=== PATIENT | male | born 1980 | race African-American/Black ===

== ENCOUNTER → 2019-03-13 | Outpatient (CLI) | payer OTHER | END | disposition home or self-care (01) | LOC: RAH 09:27 → EEVIPCON 09:27 | PROVIDERS: ATTEND Internal Medicine | DX: M25.561 Pain in right knee (principal) | CPT/HCPCS: 73562 ==

== ENCOUNTER 2019-06-16 07:43 | Day surgery (SDC) | payer OTHER ==
[~2019-06-16] VITALS: Ht 177.8 cm; Wt 62.1 kg
[2019-06-16] VITALS (19 sets, daily range): BP systolic 115–157; BP diastolic 63–98
[2019-06-16 08:36] LABS: BASOPHILS % (AUTO) 0.8 % (0.0-5.0); EOSINOPHILS % (AUTO) 2.8 % (0.0-8.0); HEMATOCRIT 35.6 % (42-54); MEAN CORPUSCULAR HEMOGLOBIN 29.8 pg (27.0-33.0); MEAN CORPUSCULAR HGB CONC 32.9 g/dL (32.0-36.0); MEAN CORPUSCULAR VOLUME 90.8 fL (79-99); MONOCYTES % (AUTO) 10.6 % (3.0-13.0); NEUTROPHILS % (AUTO) 37.8 % (40.0-77.0); PLATELET COUNT (AUTO) 180 K/uL (130-400); RED BLOOD CELL COUNT(AUTO) 3.92 MIL/uL (4.50-6.20); WHITE BLOOD COUNT (AUTO) 2.5 K/uL (4.8-10.8)
[2019-06-16 08:47] LABS: CREATININE 1.7 mg/dL (0.5-1.5); POTASSIUM 4.1 mmol/L (3.5-5.1)
[2019-06-16 10:03] LABS: BASOPHILS % (MANUAL) 5 % (0-2); EOSINOPHILS % (MANUAL) 4 % (1-6); LYMPHOCYTES % (MANUAL) 45 % (22-44); MAN.DIFF COMMENT-IMPRESSION MANUAL DIFFERENTIAL; MONOCYTES % (MANUAL) 10 % (2-9); PLATELET MORPHOLOGY COMMENT ADEQUATE; REACTIVE LYMPHOCYTES 3 % (0-0); SEGMENTED NEUTROPHILS % 33 % (40-70)
[2019-06-16] MEDS ORDERED: LACTATED RINGERS 1000ML 1,000 ML IV ONE (10:03)
[2019-06-16] MEDS: CEFAZOLIN SODIUM 1 GM VIAL ONE ×2 (10:15→13:30)
[2019-06-16] MEDS ORDERED: FOLI20CA PO (10:49)
[2019-06-16] MEDS ORDERED: TRAM50TA4 PO (10:49)
[2019-06-16] MEDS ORDERED: OMEP20CA12 PO (10:49)
[2019-06-16] MEDS ORDERED: GUAI100S13 PO (10:49)
[2019-06-16] MEDS ORDERED: RITO100T4 PO (10:49)
[2019-06-16] MEDS ORDERED: DOLU50TA PO (10:49)
[2019-06-16] MEDS ORDERED: DOCU100T PO (10:49)
[2019-06-16] MEDS ORDERED: EMTR1TAB12 PO (10:49)
[2019-06-16] MEDS ORDERED: ESCI10TA54 PO (10:49)
[2019-06-16] MEDS ORDERED: MULT1TAB70 PO (10:49)
[2019-06-16] MEDS ORDERED: DARU800T PO (10:49)
[2019-06-16] MEDS ORDERED: LIDOCAINE PF 2% 5ML ABBOJECT ONE (12:41)
[2019-06-16] MEDS ORDERED: ONDANSETRON HCL 4 MG/2 ML VIAL ONE (12:41)
[2019-06-16] MEDS ORDERED: PROPOFOL 10 MG/ML 20ML VIAL IV ONE (12:41)
[2019-06-16] MEDS ORDERED: ROCURONIUM 10MG/1ML SYR 10 MG/ML ML ONE (12:42)
[2019-06-16] MEDS ORDERED: MIDAZOLAM HCL 1 MG/ML 2ML VIAL ONE (12:42)
[2019-06-16] MEDS ORDERED: FENTANYL CITRATE PF 50 MCG/1 ML 2ML VIAL ONE (12:43)
[2019-06-16] MEDS ORDERED: ROPIVACAINE 0.5% 5MG/ML 30ML IJ ONE (12:58)
[2019-06-16] MEDS ORDERED: FENTANYL CITRATE PF 50 MCG/1 ML 5ML AMP IV ONE (13:36)
[2019-06-16] MEDS ORDERED: KETOROLAC TROMETHAMINE 30MG/ML ONE ×2 (14:28→14:30)
[2019-06-16] MEDS ORDERED: NEOSTIGMINE 5MG/5ML SYR IV ONE (14:33)
[2019-06-16] MEDS ORDERED: GLYCOPYRROLATE 1 MG/5 ML SYRINGE ONE (14:33)
[2019-06-16] MEDS ORDERED: MEPERIDINE-PF 25 MG/ML SYG ONE ×2 (15:06→15:14)
--- NOTE | 2019-06-16 17:25 | NUR ---
Pt discharged home. Pt denies any severe pain, nausea or dizziness. Pt dressing to left ankle, dry, clean and intact with lisbet wrap and rehab boot in place, with signs of good peripheral circulation to toes. Report called ahead to custodial center charge nurse. Prescription for Tylenol #3 given to security monitor. Pt reports no further questions at this time.
== END 2019-06-16 17:25 | disposition home or self-care (01) ==
LOC: DAH 07:43 → EEVIPCON 07:43 → DAH 17:25
PROVIDERS: ATTEND Orthopaedic Surgery
DX: S82.842A Displaced bimalleolar fracture of left lower leg, initial encounter for closed fracture (principal); X58.XXXA Exposure to other specified factors, initial encounter; Y93.89 Activity, other specified; Y92.89 Other specified places as the place of occurrence of the external cause; Y99.8 Other external cause status; I10 Essential (primary) hypertension; K21.9 Gastro-esophageal reflux disease without esophagitis; F41.9 Anxiety disorder, unspecified; B20 Human immunodeficiency virus [HIV] disease; E03.9 Hypothyroidism, unspecified; Z79.899 Other long term (current) drug therapy
CPT/HCPCS: 20694; 27814; 27829; 36415; 64445; 71045; 73610; 76942; 80048; 85025; 93005; A4215; A4221; A4222; A4223; A4649 ×6; A4663; A4930 ×2; A6223; C1713 ×5; C1776; J0690; J1885; J2001; J2175 ×2; J2250; J2405; J2704; J2710; J2795; J3010 ×2; J3490; J7120 ×2